=== PATIENT | male | born 1985 | race Caucasian/White ===

== ENCOUNTER 2022-12-25 19:56 | Inpatient (IN) | payer OTHER ==
[2022-12-26 00:42] VITALS: BMI 24.7
[2022-12-26] MEDS ORDERED: guaiFENesin 600 MG TABLET.ER (FP) PO PRN (00:44)
[2022-12-26] MEDS ORDERED: POLYETHYLENE GLYCOL (HEALTHYLAX) 3350 17 GM PACKET PO PRN (00:44)
[2022-12-26] MEDS ORDERED: IBUPROFEN 400 MG TABLET (FP) PO PRN (00:44)
[2022-12-26] MEDS ORDERED: BENZONATATE 200 MG CAPSULE PO PRN (00:44)
[2022-12-26] MEDS ORDERED: ONDANSETRON *ODT* 4 MG TABLET SL PRN (00:44)
[2022-12-26] MEDS ORDERED: LOPERAMIDE HCL 2 MG CAPSULE PO PRN (00:44)
[2022-12-26] MEDS ORDERED: NALOXONE HCL 0.4 MG/ML VIAL IM PRN (00:44)
[2022-12-26] MEDS ORDERED: DICYCLOMINE HCL 10 MG CAPSULE PO PRN (00:44)
[2022-12-26] MEDS ORDERED: BISMUTH SUBSALICYLATE 524 MG/30 ML PO PRN (00:44)
[2022-12-26] MEDS ORDERED: MAGNESIUM HYDROX 2400MG/30ML ORAL SUSPENSION 30 ML CUP PO PRN (00:44)
[2022-12-26] MEDS ORDERED: BENZOCAINE/MENTHOL (CHLORASEPTIC ) LOZENGE MM PRN (00:44)
[2022-12-26] MEDS ORDERED: NALOXONE HCL (KLOXXADO) 8 MG SPRAY NS PRN (00:44)
[2022-12-26] MEDS: chlordiazePOXIDE HCL 25 MG CAPSULE PO PRN ×3 (02:07→19:28)
[2022-12-26] MEDS: IBUPROFEN 600 MG TABLET (FP) PO PRN ×2 (02:08→22:57)
[2022-12-26] MEDS: chlordiazePOXIDE HCL 25 MG CAPSULE PO SCH ×4 (05:38→22:23)
[2022-12-26] MEDS: MAG HYDROX/AL HYDROX/SIMETH 30 ML UNIT-DOSE CUP PO PRN ×2 (08:22→17:27)
[2022-12-26] MEDS: PRENATAL VITAMINS W/ FOLIC ACID TABLET (FP) PO SCH (10:04)
[2022-12-26] MEDS: NICOTINE 14 MG/24 HOURS TOPICAL PATCH TD SCH (10:05)
[2022-12-26 10:29] LABS: HEMOGLOBIN 13.2 GM/dL (11.7-16.9); MCH 32.3 pg (25.7-33.7); MCHC 33.8 g/dl (32.0-35.9); MEAN CELL VOLUME 95.4 fl (80-96); MEAN PLT VOLUME 7.4 fl (7.5-11.1); PLATELET COUNT 224 10^3/uL (134-434); RBC 4.09 M/mm3 (4.00-5.60); WHITE BLOOD COUNT 4.4 K/mm3 (4.0-10.0)
[2022-12-26 10:34] LABS: CHLORIDE 100 mmol/L (98-107); POTASSIUM 3.4 mmol/L (3.5-5.1); SODIUM 138 mmol/L (136-145)
[2022-12-26 10:36] LABS: CALCIUM 8.4 mg/dL (8.5-10.1)
[2022-12-26 10:38] LABS: ALBUMIN 3.8 g/dl (3.4-5.0); ANION GAP 8 mmol/L (4-13); BLOOD UREA NITROGEN 19.1 mg/dL (7-18); CO2 30 mmol/L (21-32); GLUCOSE,RANDOM 121 mg/dL (74-106)
[2022-12-26 10:39] LABS: SGPT/ALT 41 U/L (13-61)
[2022-12-26 10:40] LABS: CREATININE 1.2 mg/dL (0.55-1.3); SGOT/AST 79 U/L (15-37)
[2022-12-26 10:41] LABS: BILIRUBIN,TOTAL 1.2 mg/dL (0.2-1)
[2022-12-26 10:42] LABS: ALK PHOS 81 U/L (45-117)
[2022-12-26] MEDS: LORATADINE 10 MG TABLET PO SCH (11:35)
[2022-12-26] MEDS ORDERED: FAMOTIDINE 20 MG TABLET PO ONE (11:42)
[2022-12-26] MEDS ORDERED: FLU VACCINE (FLULAVAL) PF 60 MCG/0.5 ML SYRINGE 2023-2024 IM ONE (12:00)
[2022-12-26] MEDS ORDERED: BUPRENORPHINE/NALOXONE 8 MG/2 MG FILM PACKET SL ONE (12:00)
[2022-12-26 14:16] LABS: URINE APPEARANCE CLEAR; URINE BILIRUBIN NEGATIVE (NEGATIVE); URINE COLOR DK YELLOW; URINE GLUCOSE (UA) NEGATIVE (NEGATIVE); URINE KETONE TRACE (NEGATIVE); URINE LEUK ESTERASE NEGATIVE (NEGATIVE); URINE NITRITE NEGATIVE (NEGATIVE); URINE PROTEIN TRACE (NEGATIVE)
[2022-12-26] MEDS: NICOTINE POLACRILEX 2 MG GUM BUC PRN (18:26)
[2022-12-26] MEDS: ACETAMINOPHEN 325 MG TABLET (FP) PO PRN (19:34)
[2022-12-26] MEDS ORDERED: MELATONIN 5 MG TABLETS PO SCH (22:00)
[2022-12-26] MEDS: FAMOTIDINE 20 MG TABLET PO SCH (22:22)
[2022-12-26] MEDS: THIAMINE HCL 100 MG TABLET (FP) PO SCH (22:22)
[2022-12-26] MEDS: BUPRENORPHINE/NALOXONE 8 MG/2 MG FILM PACKET SL SCH (22:23)
[2022-12-26] MEDS: SUVOREXANT 10 MG TABLET PO PRN (22:57)
[2022-12-27] MEDS: chlordiazePOXIDE HCL 25 MG CAPSULE PO PRN ×2 (00:57→19:31)
[2022-12-27] MEDS: chlordiazePOXIDE HCL 25 MG CAPSULE PO SCH ×4 (05:37→22:14)
[2022-12-27] MEDS: PRENATAL VITAMINS W/ FOLIC ACID TABLET (FP) PO SCH (10:07)
[2022-12-27] MEDS: BUPRENORPHINE/NALOXONE 8 MG/2 MG FILM PACKET SL SCH ×2 (10:07→22:14)
[2022-12-27] MEDS: FAMOTIDINE 20 MG TABLET PO SCH ×2 (10:07→22:13)
[2022-12-27] MEDS: LORATADINE 10 MG TABLET PO SCH (10:07)
[2022-12-27] MEDS: NICOTINE POLACRILEX 2 MG GUM BUC PRN ×2 (10:08→17:21)
[2022-12-27] MEDS: NICOTINE 14 MG/24 HOURS TOPICAL PATCH TD SCH (10:08)
[2022-12-27] MEDS: ACETAMINOPHEN 325 MG TABLET (FP) PO PRN (17:06)
[2022-12-27] MEDS: SUVOREXANT 10 MG TABLET PO PRN (22:13)
[2022-12-27] MEDS: THIAMINE HCL 100 MG TABLET (FP) PO SCH (22:13)
[2022-12-28] MEDS: chlordiazePOXIDE HCL 10 MG CAPSULE PO PRN ×2 (00:59→14:24)
[2022-12-28] MEDS: chlordiazePOXIDE HCL 10 MG CAPSULE PO SCH ×4 (05:41→22:27)
[2022-12-28] MEDS: LORATADINE 10 MG TABLET PO SCH (09:16)
[2022-12-28] MEDS: FAMOTIDINE 20 MG TABLET PO SCH ×2 (09:16→22:28)
[2022-12-28] MEDS: PRENATAL VITAMINS W/ FOLIC ACID TABLET (FP) PO SCH (09:16)
[2022-12-28] MEDS: NICOTINE 14 MG/24 HOURS TOPICAL PATCH TD SCH (09:16)
[2022-12-28] MEDS: NICOTINE POLACRILEX 2 MG GUM BUC PRN ×2 (09:17→14:27)
[2022-12-28] MEDS: BUPRENORPHINE/NALOXONE 8 MG/2 MG FILM PACKET SL SCH ×2 (10:12→22:27)
[2022-12-28] MEDS: IBUPROFEN 600 MG TABLET (FP) PO PRN (12:36)
[2022-12-28] MEDS: SUVOREXANT 10 MG TABLET PO PRN (22:26)
[2022-12-28] MEDS: THIAMINE HCL 100 MG TABLET (FP) PO SCH (22:28)
[2022-12-29] MEDS ORDERED: chlordiazePOXIDE HCL 10 MG CAPSULE PO ONE (01:00)
[2022-12-29] MEDS: chlordiazePOXIDE HCL 10 MG CAPSULE PO SCH ×2 (05:06→17:07)
[2022-12-29] MEDS: IBUPROFEN 600 MG TABLET (FP) PO PRN (05:09)
[2022-12-29] MEDS: PRENATAL VITAMINS W/ FOLIC ACID TABLET (FP) PO SCH (10:20)
[2022-12-29] MEDS: LORATADINE 10 MG TABLET PO SCH (10:20)
[2022-12-29] MEDS: FAMOTIDINE 20 MG TABLET PO SCH ×2 (10:20→21:01)
[2022-12-29] MEDS: BUPRENORPHINE/NALOXONE 8 MG/2 MG FILM PACKET SL SCH ×2 (10:20→21:00)
[2022-12-29] MEDS: NICOTINE POLACRILEX 2 MG GUM BUC PRN (10:21)
[2022-12-29] MEDS: NICOTINE 14 MG/24 HOURS TOPICAL PATCH TD SCH (10:21)
[2022-12-29] MEDS ORDERED: COLLOIDAL OATMEAL 1 BAR EACH TP PRN (15:15)
[2022-12-29] MEDS ORDERED: chlordiazePOXIDE 5 MG CAPSULE PO ONE (15:30)
[2022-12-29] MEDS: ACETAMINOPHEN 325 MG TABLET (FP) PO PRN (19:21)
[2022-12-29] MEDS: SUVOREXANT 10 MG TABLET PO PRN (20:55)
[2022-12-29] MEDS: POTASSIUM CHLORIDE ORAL LIQUID 20 MEQ/15 ML PO SCH (21:00)
[2022-12-29] MEDS: THIAMINE HCL 100 MG TABLET (FP) PO SCH (21:01)
[2022-12-30] MEDS ORDERED: chlordiazePOXIDE HCL 25 MG CAPSULE PO ONE (00:49)
[2022-12-30] MEDS ORDERED: chlordiazePOXIDE HCL 10 MG CAPSULE PO ONE (05:00)
[2022-12-30 08:52] VITALS: BP 124/77; PULSE 83; RESP 16; TEMP 97.5
[2022-12-30] MEDS: POTASSIUM CHLORIDE ORAL LIQUID 20 MEQ/15 ML PO SCH (09:02)
[2022-12-30] MEDS: PRENATAL VITAMINS W/ FOLIC ACID TABLET (FP) PO SCH (09:02)
[2022-12-30] MEDS: LORATADINE 10 MG TABLET PO SCH (09:02)
[2022-12-30] MEDS: FAMOTIDINE 20 MG TABLET PO SCH (09:02)
[2022-12-30] MEDS: BUPRENORPHINE/NALOXONE 8 MG/2 MG FILM PACKET SL SCH (09:03)
[2022-12-30] MEDS: NICOTINE 14 MG/24 HOURS TOPICAL PATCH TD SCH (09:04)
== END 2022-12-30 10:05 | disposition home or self-care (01) | DRG 773 ==
LOC: EDBD → YASAS 19:56 → Y6N 12-26 01:17
PROVIDERS: ADMIT Allergy & Immunology; ATTEND Psychiatry & Neurology Pain Medicine
PROC: HZ2ZZZZ Detoxification Services for Substance Abuse Treatment (ICD-10-PCS; principal; 2022-12-26)
DX: F10.230 Alcohol dependence with withdrawal, uncomplicated (principal); F13.230 Sedative, hypnotic or anxiolytic dependence with withdrawal, uncomplicated; F11.20 Opioid dependence, uncomplicated; F17.210 Nicotine dependence, cigarettes, uncomplicated; F19.280 Other psychoactive substance dependence with psychoactive substance-induced anxiety disorder; F19.282 Other psychoactive substance dependence with psychoactive substance-induced sleep disorder; J45.909 Unspecified asthma, uncomplicated; K21.9 Gastro-esophageal reflux disease without esophagitis; Z87.19 Personal history of other diseases of the digestive system; Z88.6 Allergy status to analgesic agent; Z88.8 Allergy status to other drugs, medicaments and biological substances
CPT/HCPCS: 36415; 80053; 80307; 81003; 82746; 85027; 86780; 87635; 90686; 93005; 93010; G0008